=== PATIENT | female | born 1965 | race Caucasian/White ===

== ENCOUNTER 2018-10-09 12:14 | Emergency (ER) | payer BC ==
[2018-10-09 13:32] LABS: Anion Gap 17 mmol/L (10-20); BUN (Urea Nitrogen) 10 mg/dL (9.8-20.1); Calc. Creatinine Clearance 0 mL/min (70-130); Calcium 9.8 mg/dL (7.8-10.44); Carbon Dioxide 25 mmol/L (22-29); Chloride 105 mmol/L (98-107); Estimated GFR-MDRD 71; Glucose 89 mg/dL (70-105); Potassium 3.9 mmol/L (3.5-5.1); Sodium 143 mmol/L (136-145)
== END 2018-10-09 14:17 | disposition home or self-care (01) ==
LOC: MADERS 12:14
DX: R42 Dizziness and giddiness (principal); Z76.0 Encounter for issue of repeat prescription; I25.10 Atherosclerotic heart disease of native coronary artery without angina pectoris; I10 Essential (primary) hypertension; F41.9 Anxiety disorder, unspecified; Z79.899 Other long term (current) drug therapy
CPT/HCPCS: 36415; 80048; 84484; 93005

== ENCOUNTER 2021-10-24 10:02 | Outpatient (CLI) | payer OTHER | END 2021-10-24 10:03 | disposition home or self-care (01) | LOC: MADLAB 10:02 → MADRAD 10:03 | DX: J44.9 Chronic obstructive pulmonary disease, unspecified (principal); R05.9 Cough, unspecified | CPT/HCPCS: 71046 ==

== ENCOUNTER 2022-04-21 19:26 | Emergency (ER) | payer OTHER ==
[2022-04-21] MEDS ORDERED: Tranexamic Acid 1,000 MG/10 ML VIAL ONE (19:56)
[2022-04-21 19:57] LABS: #Basophils 0.1 thou/uL (0.0-0.2); #Eosinphils 0.1 thou/uL (0.0-0.7); #Lymphocytes 1.7 thou/uL (1.20-3.40); #Monocytes 0.6 thou/uL (0.11-0.59); #Neutrophils 7.2 thou/uL (1.40-6.50); %Basophils 0.5 % (0.0-1.0); %Eosinophils 1.3 % (0.0-10.0); %Lymphocytes 17.4 % (21.0-51.0); %Monocytes 6.3 % (0.0-10.0); %Neutrophils 74.5 % (42.0-75.0); Hemoglobin 12.3 g/dL (12.0-16.0); Mean Corpuscular HGB CONC 31.8 g/dL (32.0-36.0); Mean Corpuscular Hemoglobin 29.6 pg (27.0-31.0); Mean Corpuscular Volume 92.9 fL (78.0-98.0); Mean Platelet Volume 9.1 fL (7.4-10.4); Platelet Count 251 thou/uL (130-400); RBC Distribution Width 14.1 % (11.5-14.5); Red Blood Cell (RBC) Count 4.17 mill/uL (4.20-5.40); White Blood Cell (WBC) Count 9.7 thou/uL (4.8-10.8)
[2022-04-21 20:23] LABS: INR-International Normal Ratio 0.9; PTT 31.4 sec (22.9-36.1); Prothrombin Time 12.5 sec (12.0-14.7)
[2022-04-21] MEDS ORDERED: HYDROcodone/Acetaminophen 5/325 mg Tablet ONE (20:42)
[2022-04-21] MEDS ORDERED: Ondansetron ODT 4 MG TAB ONE (20:42)
== END 2022-04-21 20:48 | disposition home or self-care (01) ==
LOC: MADERS 19:26
DX: K08.89 Other specified disorders of teeth and supporting structures (principal); K91.840 Postprocedural hemorrhage of a digestive system organ or structure following a digestive system procedure; I10 Essential (primary) hypertension; I25.10 Atherosclerotic heart disease of native coronary artery without angina pectoris; E78.5 Hyperlipidemia, unspecified; F17.210 Nicotine dependence, cigarettes, uncomplicated; Z95.5 Presence of coronary angioplasty implant and graft; Z79.82 Long term (current) use of aspirin; Z79.899 Other long term (current) drug therapy
CPT/HCPCS: 85025; 85610; 85730; 99283; Q0162

== ENCOUNTER 2024-08-30 17:35 | Emergency (ER) | payer OTHER ==
[2024-08-30 18:20] LABS: Bilirubin Negative (Negative); Blood, Urine Negative (Negative); Clarity Clear (Clear); Glucose, Urine (Dipstick) Negative (Negative); Ketone, Urine Negative (Negative); Leukocyte Trace (Negative); Nitrite Negative (Negative); Protein, Urine (Dipstick) Negative (Neg-Trace); Urobilinogen 0.2 mg/dL (Less than 2)
[2024-08-30 18:27] LABS: Bacteria/HPF Rare-Few HPF (None Seen); CAUTI Indications for Culture Pelvic or flank pain; RBC/HPF None Seen HPF (0-3); Squamous Epithelial 0-3 HPF (0-3); Urine Culture Reflex No No
== END 2024-08-30 19:03 | disposition home or self-care (01) ==
LOC: MADERS 17:35
DX: B34.9 Viral infection, unspecified (principal); I10 Essential (primary) hypertension; Z95.5 Presence of coronary angioplasty implant and graft; Z87.891 Personal history of nicotine dependence
CPT/HCPCS: 81001; 99283

== ENCOUNTER 2025-05-12 18:13 | Emergency (ER) | payer OTHER ==
[2025-05-12] MEDS ORDERED: Ondansetron PF 4 MG/2 ML Vial ONE (19:27)
[2025-05-12] MEDS ORDERED: Acetaminophen 500 MG TAB ONE (19:27)
[2025-05-12 19:37] LABS: Hematocrit 40.8 % (36.0-47.0); Hemoglobin 12.9 g/dL (12.0-16.0); MDiff Complete? YES; Mean Corpuscular Hemoglobin 28.1 pg (27.0-31.0); Mean Corpuscular Volume 88.9 fl (78.0-98.0); Platelet Count 255 10x3/uL (130-400); Red Blood Cell (RBC) Count 4.59 mill/uL (4.20-5.40); White Blood Cell (WBC) Count 6.0 10x3/uL (4.8-10.8)
[2025-05-12 19:45] LABS: ALT (SGPT) 12 U/L (Less than 34); AST (SGOT) 23 U/L (11-34); Albumin 4.0 g/dL (3.1-4.5); Alkaline Phosphatase 74 U/L (40-110); Anion Gap 18 mmol/L (10-20); BUN (Urea Nitrogen) 4 mg/dL (9.8-20.1); Bilirubin, Total 0.3 mg/dL (0.3-1.2); Calc. Creatinine Clearance 0 mL/min (70-130); Calcium 8.8 mg/dL (7.8-10.44); Carbon Dioxide 23 mmol/L (22-29); Chloride 103 mmol/L (98-107); Globulin 3.1 g/dL (2.4-3.5); Glucose 99 mg/dL (70-105); Potassium 3.7 mmol/L (3.5-5.1); Sodium 140 mmol/L (136-145)
[2025-05-12 21:04] LABS: Glucose, Urine (Dipstick) Negative (Negative); Leukocyte Moderate (Negative); Protein, Urine (Dipstick) Negative (Neg-Trace); Specific Gravity, Urine 1.015 (1.005-1.030)
[2025-05-12 21:10] LABS: Bacteria/HPF Rare-Few HPF (None Seen); CAUTI Indications for Culture Fever or rigors; RBC/HPF 0-3 HPF (0-3); Urine Culture Reflex Yes Yes
[2025-05-12] MEDS ORDERED: Cephalexin 500 MG CAP ONE (21:48)
== END 2025-05-12 21:59 | disposition home or self-care (01) ==
LOC: MADERS 18:13
DX: E86.0 Dehydration (principal); R11.2 Nausea with vomiting, unspecified; N39.0 Urinary tract infection, site not specified; I25.10 Atherosclerotic heart disease of native coronary artery without angina pectoris; I10 Essential (primary) hypertension; Z87.891 Personal history of nicotine dependence; Z95.5 Presence of coronary angioplasty implant and graft; Z79.899 Other long term (current) drug therapy
CPT/HCPCS: 71046; 80053; 81001; 84443; 85025; 87086; 96361; 96374; J2405; J7030; J7620

== ENCOUNTER 2025-05-17 13:43 | Emergency (ER) | payer OTHER ==
[2025-05-17] MEDS ORDERED: Azithromycin 500 MG VIAL ONE (14:39)
[2025-05-17 15:17] LABS: #Basophils 0.0 thou/uL (0.0-0.2); #Eosinophils 0.0 thou/uL (0.0-0.7); #Lymphocytes 2.2 thou/uL (1.20-3.40); #Monocytes 0.6 thou/uL (0.11-0.59); #Neutrophils 2.9 thou/uL (1.40-6.50); %Basophils 0.5 % (0.0-1.0); %Eosinophils 0.6 % (0.0-10.0); %Lymphocytes 38.4 % (21.0-51.0); %Monocytes 10.2 % (0.0-10.0); %Neutrophils 50.3 % (42.0-75.0); Hematocrit 38.8 % (36.0-47.0); Hemoglobin 12.5 g/dL (12.0-16.0); Mean Corpuscular Hemoglobin 28.4 pg (27.0-31.0); Mean Corpuscular Volume 88.2 fl (78.0-98.0); Platelet Count 366 10x3/uL (130-400); Red Blood Cell (RBC) Count 4.39 mill/uL (4.20-5.40); White Blood Cell (WBC) Count 5.7 10x3/uL (4.8-10.8)
[2025-05-17 15:36] LABS: ALT (SGPT) 11 U/L (Less than 34); AST (SGOT) 20 U/L (11-34); Albumin 3.9 g/dL (3.1-4.5); Alkaline Phosphatase 68 U/L (40-110); Anion Gap 16 mmol/L (10-20); BUN (Urea Nitrogen) 4 mg/dL (9.8-20.1); Bilirubin, Total 0.3 mg/dL (0.3-1.2); CK (CPK) 126 U/L (29-168); Calc. Creatinine Clearance 0 mL/min (70-130); Calcium 8.7 mg/dL (7.8-10.44); Carbon Dioxide 26 mmol/L (22-29); Chloride 104 mmol/L (98-107); Globulin 3.4 g/dL (2.4-3.5); Glucose 119 mg/dL (70-105); Magnesium 2.0 mg/dL (1.6-2.6); Potassium 3.3 mmol/L (3.5-5.1); Sodium 143 mmol/L (136-145); Troponin I Less than 0.010 ng/mL (< 0.028)
[2025-05-17 16:47] LABS: Glucose, Urine (Dipstick) Negative (Negative); Leukocyte Moderate (Negative); Protein, Urine (Dipstick) Negative (Neg-Trace); Specific Gravity, Urine Less/Equal 1.005 (1.005-1.030)
[2025-05-17 16:53] LABS: Bacteria/HPF Rare-Few HPF (None Seen); CAUTI Indications for Culture Dysuria,urgency,freq; RBC/HPF None Seen HPF (0-3); Urine Culture Reflex No No
== END 2025-05-17 22:32 | disposition short-term general hospital (02) ==
LOC: MADERS 13:43
DX: J44.1 Chronic obstructive pulmonary disease with (acute) exacerbation (principal); J44.0 Chronic obstructive pulmonary disease with (acute) lower respiratory infection; J20.9 Acute bronchitis, unspecified; J96.00 Acute respiratory failure, unspecified whether with hypoxia or hypercapnia; E86.0 Dehydration; I25.10 Atherosclerotic heart disease of native coronary artery without angina pectoris; I10 Essential (primary) hypertension; Z95.5 Presence of coronary angioplasty implant and graft; Z79.51 Long term (current) use of inhaled steroids; Z79.899 Other long term (current) drug therapy; Z87.891 Personal history of nicotine dependence
CPT/HCPCS: 71250; 80053; 81001; 82550; 83605; 83735; 83880; 84484; 85025; 85379; 87040; 93005; 96361; 96365; 96368; 96375; J0456; J0692; J2919; J7050; J7620